=== PATIENT | female | born 1955 | race Caucasian/White ===

== ENCOUNTER 2020-01-07 13:25 | Outpatient (CLI) | payer BC, SELFPAY ==
--- NOTE | ~2020-01-07 | DEXA_ITS ---
BMD(1) Young-Adult(2) Age-Matched(3) Region (g/cm2) T-score Z-score WHO Classification L1 1.086 -0.4 2.2 Normal L2 1.107 -0.8 1.8 Normal L3 1.015 -1.6 1.1 Osteopenia L4 0.996 -1.7 1.0 Osteopenia L1-L4 1.044 -1.2 1.5 Osteopenia Trend: L1-L4 Change vs Change vs Measured Age BMD(1) Baseline Previous Date (years) (g/cm2) (%) (%) 01/07/2020 [age] 1.044 baseline - 1 - Statistically 68% of repeat scans fall within 1SD (+- 0.010 g/cm2 for AP Spine L1-L4) 2 - [place] (Combined NHANES (ages 20-30) / [employer] (ages 20-40)) AP Spine Reference Population (v112) 3 - Matched for Age, Weight (females 25-100 kg), Ethnic 11 - World Health Organization - Definition of Osteoporosis and Osteopenia for Women: Normal = T-score at or above -1.0 SD; Osteopenia = T-score between -1.0 and -2.5 SD; Osteoporosis = T-score at or below -2.5 SD; (WHO definitions only apply when a young healthy Women reference database is used to determine T-scores.) Printed: 01/07/2020 2:00:36 PM (13.60)76:0.75:50.00:12.0 0.00:10.98 0.60x1.05 20.4:%Fat=32.5% 0.00:0.00 0.00:0.00 Measured thickness not within mode range Filename: [id number].[id number] Scan Mode: Thin;OneScan 9.0 [employer] [id number] BMD(1) Young-Adult(2,7) Age-Matched(3) Region (g/cm2) T-score Z-score WHO Classification Neck Left 0.879 -1.1 1.0 Osteopenia Right 0.832 -1.5 0.7 Osteopenia Mean 0.855 -1.3 0.9 Osteopenia Difference 0.048 0.3 0.3 - Total Left 0.798 -1.7 0.3 Osteopenia Right 0.797 -1.7 0.3 Osteopenia Mean 0.797 -1.7 0.3 Osteopenia Difference 0.001 0.0 0.0 - Hip Ladd Length Comparison (mm) (Right = 121.2 mm) (Mean = 108.8 mm) (Left = 121.3 mm) Trend: Total Mean Change vs Change vs Measured Age BMD(1) Baseline Previous Date (years) (g/cm2) (%) (%) 01/07/2020 64.0 0.797 baseline - 1 - Statistically 68% of repeat scans fall within 1SD (+- 0.010 g/cm2 for DualFemur Total) 2 - [place] (Combined NHANES (ages 20-30) / [employer] (ages 20-40)) Femur Reference Population (v112) 3 - Matched for Age, Weight (females 25-100 kg), Ethnic 7 - DualFemur Total T-score difference is 0.0. Asymmetry is None. 11 - World Health Organization - Definition of Osteoporosis and Osteopenia for Women: Normal = T-score at or above -1.0 SD; Osteopenia = T-score between -1.0 and -2.5 SD; Osteoporosis = T-score at or below -2.5 SD; (WHO definitions only apply when a young healthy Women reference database is used to determine T-scores.) Printed: 01/07/2020 2:00:37 PM (13.60); Filename: [id number].dfx; Right Femur; 16.8:%Fat=28.8%; Neck Angle (deg)= 59; Scan Mode: Thin 9.0 uGy; Left Femur; 17.4:%Fat=31.7%; Neck Angle (deg)= 61; Scan Mode: Thin 9.0 uGy Smart Sparrow [id number] Dear Cathleen Greenberg, Your patient Joycelyn Montero completed a BMD test on 01/07/2020 using the Smart Sparrow DXA System (analysis version: 13.60) manufactured by [employer]. The following summarizes the results of our evaluation. PATIENT BIOGRAPHICAL: Name: Joycelyn Montero Date: 1955 Height: 68.0 in. Gender: Female Exam Date: 01/07/2020 Weight: 70.0 lbs.
== END 2020-01-07 13:26 | disposition home or self-care (01) ==
LOC: CHSIMG 13:27
DX: N95.9 Unspecified menopausal and perimenopausal disorder (principal)
CPT/HCPCS: 77080

== ENCOUNTER 2022-08-14 14:16 | Outpatient (CLI) | payer MEDICARE, SELFPAY ==
--- NOTE | ~2022-08-14 | XR_ITS ---
EXAM: XR hand RT min 3V DATE: 08/14/2022 14:34 HISTORY: RT 1st digit pain/swelling/ limited ROM x 6mo-1yr, NKI . COMPARISON: None available. FINDINGS: Decreased mineralization. No fracture or dislocation. No lytic or blastic lesion. Narrowin g, sclerosis, and osteophytosis present in multiple joints in the hand, worst at the second and third DIP joints, second MCP joint, and the trapeziometacarpal joint. Subtle erosive changes at the third DIP joint. No periosteal change. Soft tissues within normal limits. IMPRESSION: Polyarticular osteoarthritis of the right hand, severe at the right trapeziometacarpal kenia int. Right third DIP joint change may indicate a component of erosive osteoarthritis. Osteopenia. Reviewed, dictated and finalized at location K. A DIRECTOR IMPRESSION: Polyarticular osteoarthritis of the right hand, severe at the right trapeziometacarpal joint. Right third DIP joint change may indicate a componen t of erosive osteoarthritis. Osteopenia.
== END 2022-08-14 14:17 | disposition home or self-care (01) ==
LOC: CHSIMG 14:20
PROVIDERS: PCP Internal Medicine; Visit Provider Internal Medicine
DX: M79.641 Pain in right hand (principal); M19.041 Primary osteoarthritis, right hand; M85.841 Other specified disorders of bone density and structure, right hand
CPT/HCPCS: 73130

== ENCOUNTER 2023-03-05 14:06 | Outpatient (CLI) | payer MEDICARE, SELFPAY ==
--- NOTE | ~2023-03-05 | XR_ITS ---
EXAMINATION: XR foot LT min 3V DATE: 03/05/2023 14:34 INDICATION: Left foot pain, initial encounter TECHNIQUE: Dorsoplantar, lateral, and 2 oblique views of the left foot were obtained. COMPARISON: None. FINDINGS: There is an acute, traumatic, closed, mildly comminuted distal neck fracture of the fifth m etatarsal. Soft tissue swelling is seen in the lateral foot and ankle. No additional fracture is iden tified. There is [id number] osteoarthritis of multiple interphalangeal joints. IMPRESSION: 1. Acute, mildly comminuted distal neck fracture of the fifth metatarsal. Reviewed, dictated and finalized at location F.
--- NOTE | ~2023-03-05 | XR_ITS ---
EXAMINATION: XR ankle LT min 3V DATE: 03/05/2023 14:34 INDICATION: Left ankle pain TECHNIQUE: Anteroposterior, lateral, mortise, and additional oblique view of the ankle were obtained. COMPARISON: None. FINDINGS: There is a fifth metatarsal fracture described on the foot radiographs. No fracture, disloc ation, or subluxation noted at the ankle. Ankle mortise is intact. There is mild lateral soft tissue swelling of the ankle and foot. IMPRESSION: 1. No acute osseous abnormality of the ankle. 2. Fifth metatarsal fracture. Reviewed, dictated and finalized at location F.
== END 2023-03-05 14:07 | disposition home or self-care (01) ==
LOC: CHSIMG 14:08
PROVIDERS: PCP Internal Medicine; Visit Provider Internal Medicine
DX: S92.352A Displaced fracture of fifth metatarsal bone, left foot, initial encounter for closed fracture (principal)
CPT/HCPCS: 73610; 73630

== ENCOUNTER 2023-03-27 10:12 | Outpatient (CLI) | payer MEDICARE, SELFPAY ==
--- NOTE | ~2023-03-27 | XR_ITS ---
Left foot Technique: AP, oblique, and lateral views were obtained. Clinical History: Fifth metatarsal fracture COMPARISON: 03/05/2023 Findings: Comminuted fracture of the distal fifth metatarsal neck/shaft is unchanged in alignment fro m prior exam. No new fracture identified. There is early callus formation.. Joint spaces are preserve d without erosive or degenerative change. Soft tissues are unremarkable. Impression: Mild interval healing of comminuted fracture the distal fifth metatarsal neck/shaft since prior exam, with mild callus formation and stable alignment. Reviewed, dictated and finalized at location M. Impression: Mild interval healing of comminuted fracture the distal fifth metatarsal neck/s haft since prior exam, with mild callus formation and stable alignment.
== END 2023-03-27 10:13 | disposition home or self-care (01) ==
LOC: CHSIMG 10:14
PROVIDERS: PCP Internal Medicine; Visit Provider Internal Medicine
DX: S92.352D Displaced fracture of fifth metatarsal bone, left foot, subsequent encounter for fracture with routine healing (principal)
CPT/HCPCS: 73630

== ENCOUNTER 2023-04-01 13:24 | Outpatient (CLI) | payer MEDICARE, SELFPAY ==
--- NOTE | ~2023-04-01 | DEXA_ITS ---
Bone Density Report Name: HOA CARR Age: 67 Sex: Female Ethnicity: White Date of : 1955 Indication: postmenopausal; screening for osteoporosis; height loss; prior fracture; Referring Provider: Nicola Yepez Study: Bone densitometry was performed. Exam Date: April 01, 2023 Accession number: [id number] Bone Density: Region BMD T-score Z-score Classification AP Spine(L1-L4) 0.885 -1.5 0.5 Osteopenia Femoral Neck (Left) 0.692 -1.4 0.3 Osteopenia Total Hip (Left) 0.782 -1.3 0.1 Osteopenia Femoral Neck (Right) 0.748 -0.9 0.8 Normal Total Hip (Right) 0.813 -1.1 0.3 Osteopenia Femoral Neck Mean 0.720 -1.2 0.5 Osteopenia Total Hip Mean 0.797 -1.2 0.2 Osteopenia World Health Organization criteria for BMD impression classify patients as: Normal (T-score at or above -1.0), Osteopenia (T-score between -1.0 and -2.5), or Osteoporosis (T-score at or below -2.5). 10-year Fracture Risk: FRAX not reported because: Treated for osteoporosis Clinical Information Provided by Patient: Has had a low trauma fracture Is being treated for osteoporosis Has used the following medications: Boniva (i.e. ibandronate), Vitamin D, Calcium Patient maximum height was 69.5 Menopause Age: 47 Drinks caffeinated beverages Onset of menses at age 10 Impression: The patient has low bone mass, based on the Total Spine T-score. The patient has risk factors, including: previous fracture. Discussion: It is important to ask patients whether they are taking their medications and to encourage continued and appropriate compliance with their osteoporosis therapies to reduce fracture risk. It is also important to review their risk factors and encourage appropriate calcium and vitamin D intakes, exercise, fall prevention and other lifestyle measures. Follow-Up: Consider a repeat BMD and Vertebral Fracture Assessment (VFA) exam in 2 years or sooner if medically necessary, to reassess this patient's status. Reported by: Dr. Rufus Malik on 04/01/2023 1:52:00 PM. Reviewed, dictated and finalized at location A.
== END 2023-04-01 13:25 | disposition home or self-care (01) ==
LOC: CHSIMG 13:25
PROVIDERS: PCP Internal Medicine; Visit Provider Internal Medicine
DX: M85.89 Other specified disorders of bone density and structure, multiple sites (principal)
CPT/HCPCS: 77080

== ENCOUNTER 2023-05-13 09:48 | Outpatient (CLI) | payer MEDICARE, SELFPAY ==
--- NOTE | ~2023-05-13 | XR_ITS ---
EXAM: XR foot LT min 3V DATE: 05/13/2023 10:11 HISTORY: Fracture of fifth metatarsal fracture F/U [id number] AGO . COMPARISON: None available. FINDINGS: Normal mineralization. Redemonstration of the fifth metatarsal fracture, with continued ev olving healing change including hard callus, osseous bridging, and filling of the fracture lines. No new acute fracture or dislocation. No lytic or blastic lesion. Scattered degenerative change. Plantar enthesopathy. No erosion or periosteal change. Soft tissues within normal limits. IMPRESSION: Continued evolving healing change of the fifth metatarsal fracture. Reviewed, dictated and finalized at location K. 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
== END 2023-05-13 09:49 | disposition home or self-care (01) ==
LOC: CHSIMG 09:56
PROVIDERS: PCP Internal Medicine; Visit Provider Internal Medicine
DX: S92.352D Displaced fracture of fifth metatarsal bone, left foot, subsequent encounter for fracture with routine healing (principal)
CPT/HCPCS: 73630

== ENCOUNTER 2024-03-22 14:26 | Outpatient (CLI) | payer MEDICARE, SELFPAY ==
--- NOTE | ~2024-03-22 | XR_ITS ---
EXAM: XR knee RT 3V DATE: 03/22/2024 15:13 HISTORY: R Knee Pain chronic . COMPARISON: None available. FINDINGS: Decreased mineralization. No fracture or dislocation. No lytic or blastic lesion. Mild med ial joint space narrowing. Mild medial and patellofemoral compartment osteophytosis. No erosion or pe riosteal change. Soft tissues within normal limits. IMPRESSION: Osteopenia. Mild bicompartmental right knee osteoarthritis. Reviewed, dictated and finalized at location K.
== END 2024-03-22 14:27 | disposition home or self-care (01) ==
LOC: CHSIMG 14:31
PROVIDERS: PCP Internal Medicine; Visit Provider Nurse Practitioner Family
DX: M25.561 Pain in right knee (principal); M85.88 Other specified disorders of bone density and structure, other site; M17.11 Unilateral primary osteoarthritis, right knee
CPT/HCPCS: 73562

== ENCOUNTER 2024-03-24 08:14 | Outpatient (RCR) | payer MEDICARE, SELFPAY ==
--- NOTE | 2024-03-24 09:01 | PTOPEVAL1 ---
Assessment and note entered by Loy Jimenez Evaluation Information Assessment Status Evaluation ICD-10 Condition Codes (PT) M25.561 Onset 02/23/24 Subjective Information Pt. reports that she developed right knee pain about 1 month ago. She reports that she did have an ACL tear about 20 years ago. She states that her pain has been a gradual onset. She states that her pain is not constant. She states that pain is noted with walking, squatting, kneeling and stairs. She states that she will feel a locking of the knee when it does occur. She states that she walks for exercise and continues to walk despite her pain. She states that she has a trip coming up that will require a lot of walking and is concerned that she will have trouble. She states that her goal for therapy is to decrease her knee pain. Reported Pain Level Pain Score 1: Self Report Assessment PT Clinical Summary Pt. is a 68 year old female who enters the clinic with right knee pain, due to right knee instability. She has hx of ACL tear without repair. She currently presents with proximal l.e. weakness, impaired gait, impaired balance and pain. Continued skilled PT is indicated in order to improve these areas to allow for improved comfort with walking and IADL's. Plan of Care Interventions Electrical Stimulation,Gait Training,Hot Pack/Cold Pack,Manual Therapy,Neuro Re-education,Patient/ Caregiver Educati,Therapeutic Activities, Therapeutic Exercise PT Services Indicated Yes Treatment Frequency and 2x/week x 8 visits Duration These treatments will address the objective and functional deficits as defined above. The patient will be advanced safely and appropriately in order for the patient to progress towards his/her prior level of function. Additional exercises will be introduced and as well as a comprehensive home exercise program upon discharge, if needed, ?to ensure carryover of functional gains achieved in the clinic. This treatment plan has been reviewed and agreement upon by the patient.
--- NOTE | 2024-03-24 09:04 | OPREHPOC ---
Outpatient Therapy Plan of Care This is a Multidisciplinary Plan of Care that may contain components documented by all disciplines (PT, OT, and ST.) PT Problem 1 PT Problem #1 Knowledge Deficit PT Goal 1 Goal / Goal Update Pt. will be independent with a HEP addressing stability and proximal l.e. strength. Target Visit 2 PT Problem 2 PT Problem #2 Impaired Strength PT Goal 1 Goal / Goal Update Pt. will present with 5/5 bilateral hip abductor strength Pt. will be able to maintain SLS on both right and left for 30 seconds without LOB. Target Visit 8 PT Problem 3 PT Problem #3 Impaired Functional Mobil PT Goal 1 Goal / Goal Update Pt. will report being able to walk for duration of 1 hour with pain at 1/10 at worst Pt. will demonstrate the ability to navigate 10-20 steps with reciprocal pattern with 1/10 pain at worst. Target Visit 8
--- NOTE | 2024-04-12 11:11 | PTOPDC ---
Assessment and note entered by Loy Jimenez Evaluation Information Assessment Status Discharge ICD-10 Condition Codes (PT) M25.561 Onset 02/23/24 Subjective Information Pt. reports that overall she is improved. She states that she did have pain following use of the leg press last Rx, but did not last long. She notes less intense pain and denies pain currently. She reports she will continue with her HEP and is ready for discharge at this time. Reported Pain Level Pain Score 0: Self Report Assessment PT Clinical Summary Pt. demonstrates improvements in strength and flexibility. She continues to have pain, but less frequent and intense. She presents with minimal functional limitation on this date. She is encouraged to continue with her HEP and will be discharged from our care. Plan of Care PT Services Indicated No
== END 2024-04-12 16:03 | disposition home or self-care (01) ==
LOC: CHSPT 08:14
PROVIDERS: PCP Nurse Practitioner Family; Visit Provider Nurse Practitioner Family
DX: M25.561 Pain in right knee (principal)
CPT/HCPCS: 97110; 97112; 97161; 97530

== ENCOUNTER 2025-03-11 13:27 | Outpatient (CLI) | payer MEDICARE, SELFPAY ==
--- NOTE | ~2025-03-11 | XR_ITS ---
EXAMINATION: XR foot RT min 3V DATE: 03/11/2025 13:39 INDICATION: Right foot injury with pain at the fourth toe TECHNIQUE: Dorsoplantar, two oblique and lateral views of the right foot were obtained. COMPARISON: None. FINDINGS: Oblique extra-articular diaphyseal fracture of the right fourth proximal phalanx with 1.5 mm dorsal/medial displacement. No other fractures identified. Polyarticular osteoarthritis, severe at the first metatarsophalangeal joint, moderate at the third-fifth distal interphalangeal and fifth proximal inte rphalangeal joints and mild at multiple tarsometatarsal and remaining interphalangeal joints. IMPRESSION: 1. Minimally displaced extra articular axial fracture of the right fourth proximal phalanx. Reviewed, dictated and finalized at location A. IMPRESSION: 1. Minimally displaced extra articular axial fracture of the right fourth proxi mal phalanx.
== END 2025-03-11 13:28 | disposition home or self-care (01) ==
LOC: CHSIMG 13:29
PROVIDERS: PCP Internal Medicine; Visit Provider Nurse Practitioner Family
DX: S92.511A Displaced fracture of proximal phalanx of right lesser toe(s), initial encounter for closed fracture (principal)
CPT/HCPCS: 73630

== ENCOUNTER 2025-04-27 13:36 | Outpatient (CLI) | payer MEDICARE, SELFPAY ==
--- NOTE | ~2025-04-27 | DEXA_ITS ---
Bone Density Report Name: HOA CARR Age: 69 Sex: Female Ethnicity: White Date of : 1955 Indication: postmenopausal; screening for osteoporosis; height loss; prior fracture; Referring Provider: Nicola Yepez Study: Bone densitometry was performed. Exam Date: April 27, 2025 Accession number: [id number] Bone Density: Region BMD T-score Z-score Classification AP Spine(L1-L4) 0.952 -0.9 1.3 Normal Femoral Neck (Left) 0.661 -1.7 0.1 Osteopenia Total Hip (Left) 0.795 -1.2 0.3 Osteopenia Femoral Neck (Right) 0.697 -1.4 0.4 Osteopenia Total Hip (Right) 0.853 -0.7 0.8 Normal Femoral Neck Mean 0.679 -1.5 0.3 Osteopenia Total Hip Mean 0.824 -1.0 0.6 Normal World Health Organization criteria for BMD impression classify patients as: Normal (T-score at or above -1.0), Osteopenia (T-score between -1.0 and -2.5), or Osteoporosis (T-score at or below -2.5). 10-year Fracture Risk(1): Major Osteoporotic Fracture 15% Hip Fracture 2.4% Reported Risk Factors: [place] (), Neck BMD=0.661, BMI=21.8, previous fracture (1) FRAX(R) Version 3.08. Fracture probability calculated for an untreated patient. Fracture probability may be lower if the patient has received treatment. Clinical Information Provided by Patient: Has had a low trauma fracture Has used the following medications: Boniva (i.e. ibandronate), Vitamin D Patient maximum height was 69.5 Menopause Age: 47 No regular weight bearing exercise Drinks caffeinated beverages Onset of menses at age 10 Number of children 2 Impression: The patient has low bone mass, based on the Left Femoral Neck T-score. The patient has risk factors, including: previous fracture. Discussion: BONE DENSITY IS LOW AT ONE OR MORE SKELETAL SITES. This patient's lowest T-score is low at one or more skeletal sites. It meets the World Health Organization's (WHO) criteria for ?low bone mass? (T-score between -1.0 and -2.5). The patient's 10-year risk of fracture as calculated by FRAX is less than the threshold where pharmacological therapy is recommended by the National Osteoporosis Foundation (NOF). However, all treatment decisions require clinical judgment and consideration of individual patient factors, including patient preferences, comorbidities, previous drug use, risk factors not captured in the FRAX model (e.g., frailty, falls, vitamin D deficiency, increased bone turnover, interval significant decline in bone density) and possible under or overestimation of fracture risk by FRAX. The patient should follow a healthful lifestyle (good nutrition with adequate calcium and vitamin D, and appropriate weight-bearing exercise). Follow-Up: Consider repeating this study in 2 to 3 years to reassess this patient's status, or sooner if there is some new clinical indication. Reported by: CHEMA on 04/27/2025 1:56:00 PM. Reviewed, dictated and finalized at location A.
== END 2025-04-27 13:37 | disposition home or self-care (01) ==
LOC: CHSIMG 13:38
PROVIDERS: PCP Internal Medicine; Visit Provider Internal Medicine
DX: M81.0 Age-related osteoporosis without current pathological fracture (principal); M85.89 Other specified disorders of bone density and structure, multiple sites
CPT/HCPCS: 77080